=== PATIENT | male | born 1950 ===

== ENCOUNTER 2017-04-04 21:16 | Emergency (ER) | payer SELFPAY ==
[2017-04-04 22:03] VITALS: BP 134/81; PULSE 89; RESP 18; O2SAT 98
--- NOTE | 2017-04-04 23:25 | ED PDOC ---
Upper Extremity Pain/Injury Time Seen by Provider: 04/04/17 22:05 Chief Complaint (Nursing): Finger,Hand,&Wrist Chief Complaint (Provider): Left middle finger pain, injury History Per: Patient History/Exam Limitations: no limitations Onset/Duration Of Symptoms: Hrs (12) Current Symptoms Are (Timing): Still Present Quality: Sharp, Tightness, Pressure Severity: Severe Pain Scale Rating Of: 8 Additional Complaint(s): Pt states at 11 am he shot his finger with an air nail gun. Pt states he removed the nail from his finger but it became swollen and painful. Past Medical History Reviewed: Historical Data, Nursing Documentation, Vital Signs Vital Signs: Last Vital Signs Temp Pulse 89 04/04/17 22:00 Resp 18 04/04/17 22:00 BP 134/81 04/04/17 22:00 Pulse Ox 98 04/04/17 22:00 - Medical History PMH: HTN (No medication for 3 months ) - Surgical History Surgical History: No Surg Hx - Family History Family History: States: Unknown Family Hx - Living Arrangements Living Arrangements: With Family - Social History Current smoker - smoking cessation education provided: No Alcohol: Occasional Drugs: Denies - Home Medications Home Medications: Ambulatory Orders Medication Instructions Recorded Cephalexin [Keflex] 500 mg PO Q6 #28 cap 11/14/15 Amoxicillin/Clavulanate [Augmentin 1 tab PO Q12 #9 tab 01/21/16 875 MG-125 MG] Oxycodone HCl/Acetaminophen 1 each PO Q6 PRN #10 tablet 01/21/16 [Percocet 5-325 mg Tablet] - Allergies Allergies/Adverse Reactions: Allergies Allergy/AdvReac Type Severity Reaction Status Date / Time No Known Allergies Allergy Verified 01/20/16 20:56 Review of Systems ROS Statement: Except As Marked, All Systems Reviewed And Found Negative Musculoskeletal: Positive for: Other (Finger pain ) Skin: Positive for: Other Physical Exam - Reviewed Nursing Documentation Reviewed: Yes Vital Signs Reviewed: Yes - Physical Exam Appears: Positive for: Well, Non-toxic, No Acute Distress Head Exam: Positive for: ATRAUMATIC, NORMAL INSPECTION, NORMOCEPHALIC Skin: Positive for: Warm. Negative for: Normal Color ((+) edema of the left middle finger ) Eye Exam: Positive for: Normal appearance ENT: Positive for: Normal ENT Inspection Neck: Positive for: Normal, Painless ROM Cardiovascular/Chest: Positive for: Regular Rate, Rhythm Respiratory: Positive for: Normal Breath Sounds. Negative for: Accessory Muscle Use, Respiratory Distress Back: Positive for: Normal Inspection Extremity: Positive for: Tenderness (Flexor surface of the left middle finger ) , Capillary Refill, Swelling (Left middle finger ). Negative for: Normal ROM ( Finger held in flexed position, pain with extension of left midddle finger ), Deformity Neurologic/Psych: Positive for: Alert, Oriented - ECG O2 Sat by Pulse Oximetry: 98 Medical Decision Making Medical Decision Making: Discussed with Dr. Vines. X-rays normal, concern for flexor tenosynovitis. Instructed to make puncture would slightly large for decompression and admit patient. Pt states he does not want to stay over night because he has something he needs to do in the morning. PT demonstrated understanding of diagnosis and possible infection of finger. Patient agrees to stay for one dose of antibiotics and states he does not want procedure at this time. Discussed AMA. Pt states he will return tomorrow.
[2017-04-04] MEDS ORDERED: ceFAZolin 1 GM in Sodium Chloride 0.9% 100 ML IVPB ONE (23:43)
--- NOTE | 2017-04-05 09:15 | RAD ---
PROCEDURE: Left Hand Radiographs. HISTORY: puncture wound with nail, left 4th although the history states 4th and marrow and soft tissue changes are placed over the 3rd digit. COMPARISON: None. FINDINGS: BONES: No fracture. First carpal metacarpal mild osseous hypertrophy/ osteoarthritic changes. JOINTS: Proximal and distal osteoarthrosis -distal osteoarthrosis most pronounced. SOFT TISSUES: Volar soft tissue swelling 3rd digit proximal phalangeal level. This is assumed the area that was injured despite the history provided. No radiopaque foreign body is noted no cortical interruption here seen OTHER FINDINGS: None. IMPRESSION: Soft tissue swelling 3rd digit. No cortical interruption. No fracture. No radiopaque foreign body. Osteoarthrosis proximal and distal interphalangeal joints - distal interphalangeal joints most notably affected
== END 2017-04-05 00:45 | disposition home or self-care (01) ==
LOC: H.ER 21:16
DX: S69.92XA Unspecified injury of left wrist, hand and finger(s), initial encounter (principal); W29.4XXA Contact with nail gun, initial encounter; Y99.0 Civilian activity done for income or pay
CPT/HCPCS: 73130; 99284; J0690

== ENCOUNTER 2017-04-06 13:47 | Inpatient (IN) | payer OTHER ==
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
[2017-04-06] MEDS ORDERED: Piperacillin/Tazobact 3.375 GM in Sodium Chloride 0.9% 100 ML IVPB STA (14:25)
[2017-04-06 15:01] LABS: BASO % 0.4 % (0.0-2.0); EOS # 0.1 K/uL (0.0-0.7); EOS % 1.3 % (0.0-4.0); HEMATOCRIT 46.4 % (35.0-51.0); LYMPH # 1.4 K/uL (1.0-4.3); LYMPH % 21.2 % (20.0-40.0); MEAN CELL VOLUME 91.4 fl (80.0-94.0); MEAN CORPUSCULAR HGB CONC 33.9 g/dL (33.0-37.0); MEAN PLATELET VOLUME 7.8 fl (7.2-11.7); MONO # 0.6 K/uL (0.0-0.8); MONO % 8.9 % (0.0-10.0); NEUT # 4.5 K/uL (1.8-7.0); NEUT % 68.2 % (50.0-75.0); NRBC % 0.1 % (0.0-0.0); RED CELL DISTRIBUTION WIDTH 14.8 % (11.5-14.5); WHITE BLOOD COUNT 6.5 K/uL (4.8-10.8)
[2017-04-06 15:05] LABS: ALB/GLOB RATIO 1.4 (1.0-2.1); ALKALINE PHOSPHATASE 77 U/L (38-126); ALT/SGPT 26 U/L (21-72); AST/SGOT 24 U/L (17-59); BILIRUBIN,TOTAL 0.5 mg/dl (0.2-1.3); BLOOD UREA NITROGEN 27 mg/dl (9-20); CALCIUM 9.6 mg/dL (8.4-10.2); CARBON DIOXIDE 25 mmol/L (22-30); CHLORIDE 105 mmol/L (98-107); GFR AFRICAN-AMERICAN > 60; GLUCOSE,RANDOM 115 mg/dL (75-110); POTASSIUM 4.4 MMOL/L (3.6-5.0); SODIUM 140 mmol/l (132-148); TOTAL PROTEIN 7.5 G/DL (6.3-8.2)
--- NOTE | 2017-04-06 16:08 | RAD ---
PROCEDURE: Left Hand Radiographs. HISTORY: trauma to L 3rd digit COMPARISON: None available. FINDINGS: BONES: No acute displaced fracture. JOINTS: No dislocation. SOFT TISSUES: Soft tissue swelling. No evidence of radiopaque foreign body. OTHER FINDINGS: None. IMPRESSION: Soft tissue swelling. No acute displaced fracture, dislocation, or significant joint effusion identified. If symptoms persist, or if there is continued clinical concern, x-ray follow-up in 7-10 days should be considered.
[2017-04-06] MEDS ORDERED: Saccharomyces Boulardi 250 mg Cap PO SCH (19:00)
[2017-04-06 19:54] LABS: RBC URINE 2 /hpf (0-3); URINE BILIRUBIN NEGATIVE (NEGATIVE); URINE BLOOD NEGATIVE (NEGATIVE); URINE COLOR YELLOW (YELLOW); URINE GLUCOSE (UA) NEG (Normal); URINE KETONE TRACE mg/dL (NEGATIVE); URINE LEUKOCYTE ESTERASE NEG Leu/uL (Negative); URINE PROTEIN NEGATIVE (NEGATIVE); URINE UROBILINOGEN 0.2-1.0 mg/dL (0.2-1.0); WBC URINE < 1 /hpf (0-5)
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
[2017-04-07 00:15] VITALS: RESP 18
[2017-04-07] MEDS: Piperacillin/Tazobact 3.375 GM in Sodium Chloride 0.9% 100 ML IVPB SCH ×3 (00:16→12:30)
[2017-04-07 06:41] LABS: BASO % 0.4 % (0.0-2.0); EOS # 0.1 K/uL (0.0-0.7); EOS % 2.7 % (0.0-4.0); HEMATOCRIT 43.5 % (35.0-51.0); LYMPH # 1.5 K/uL (1.0-4.3); LYMPH % 31.6 % (20.0-40.0); MEAN CELL VOLUME 91.6 fl (80.0-94.0); MEAN CORPUSCULAR HEMOGLOBIN 30.5 pg (27.0-31.0); MEAN CORPUSCULAR HGB CONC 33.3 g/dL (33.0-37.0); MEAN PLATELET VOLUME 7.4 fl (7.2-11.7); MONO # 0.5 K/uL (0.0-0.8); MONO % 10.2 % (0.0-10.0); NEUT # 2.6 K/uL (1.8-7.0); NEUT % 55.1 % (50.0-75.0); NRBC % 0.1 % (0.0-0.0); RED CELL DISTRIBUTION WIDTH 14.6 % (11.5-14.5); WHITE BLOOD COUNT 4.7 K/uL (4.8-10.8)
[2017-04-07 06:53] LABS: BLOOD UREA NITROGEN 23 mg/dl (9-20); CALCIUM 8.5 mg/dL (8.4-10.2); CARBON DIOXIDE 24 mmol/L (22-30); CHLORIDE 107 mmol/L (98-107); GFR AFRICAN-AMERICAN > 60; GLUCOSE,RANDOM 95 mg/dL (75-110); POTASSIUM 4.1 MMOL/L (3.6-5.0); SODIUM 139 mmol/l (132-148)
[2017-04-07 06:59] LABS: PARTIAL THROMBOPLASTIN TIME 32.2 Seconds (25.6-37.1)
[2017-04-07 09:41] VITALS: BP 158/92; PULSE 59; TEMP 97.3; O2SAT 98
--- NOTE | 2017-04-07 11:33 | CON ---
DATE: 04/07/2017 REASON FOR CONSULTATION: Left third digit pain and swelling. HISTORY OF PRESENT ILLNESS: A 66-year-old male who injured his finger with a nail. The patient stat es a small nail was punctured in his left third digit about 7 or 8 days ago. He removed the nail and was doing fine; however, over the next couple of days he noticed some swelling and pain at the digit . The patient came to the Emergency Room about 2-3 days ago for increased pain. He was recommended for admission and IV antibiotics; however, the patient signed out AMA. He presents again back yester day with continued pain of his finger. I was consulted for further evaluation and treatment. The nacho marquis was admitted for IV antibiotics. PHYSICAL EXAMINATION: Left third digit there is a small puncture wound. No exit wound. The finger is mildly swollen. The patient has no tenderness over the flexor tendon sheath. No pain with passiv e stretch of the digit. No active drainage. Sensation is intact to light touch throughout the finge r, good capillary refill, compartments are soft. Of note, the patient had I and D of the puncture wo und yesterday in the ER with no active pus seen. States his pain is doing slightly better with IV an tibiotics. There is mild erythema over the dorsum of the finger. No streaking. The hand is warm an d well perfused. No tenderness over the palmar or dorsum of the hand. The patient can actively flex and extend the MP, PIP, and DIP joint. There is stiffness with making a fist due to swelling. X-rays of the hand were seen and reviewed, shows no foreign objects, well aligned bones, no fracture or dislocation. ASSESSMENT: Left third digit puncture wound now with cellulitis. PLAN: Discussed the above findings with the patient and recommended continuing IV antibiotics, warm compresses, and anti-inflammatory medication. Low suspicion for flexor tenosynovitis at this point. We will continue to observe. Jonathan Vines M.D. cc: [id number] TT: 04/07/2017 11:32:43 Confirmation # [id number] Dictation # [id number] vita
--- NOTE | 2017-04-07 11:53 | RAD ---
HISTORY: clearance COMPARISON: None available. TECHNIQUE: Chest, one view. FINDINGS: LUNGS: No focal consolidation. Please note that chest x-ray has limited sensitivity for the detection of pulmonary masses. PLEURA: No significant pleural effusion identified. No definite pneumothorax . CARDIOVASCULAR: Heart size appears within normal limits. Ectatic aorta. OSSEOUS STRUCTURES: No acute osseous abnormality identified. VISUALIZED UPPER ABDOMEN: Unremarkable. OTHER FINDINGS: None. IMPRESSION: No focal consolidation, significant pleural effusion, or definite pneumothorax identified.
--- NOTE | 2017-04-07 13:26 | CP.PCM.DIS ---
Provider - Provider Date of Admission: 04/06/17 18:11 Attending physician: Casper Fox MD Primary care physician: None Consults: Hand surgery consult Time Spent in preparation of Discharge (in minutes): 20 Hospital Course - Lab Results Lab Results: Most Recent Lab Values WBC 4.7 K/uL (4.8-10.8) L 04/07/17 06:15 RBC 4.75 Mil/uL (4.40-5.90) 04/07/17 06:15 Hgb 14.5 g/dL (12.0-18.0) 04/07/17 06:15 Hct 43.5 % (35.0-51.0) 04/07/17 06:15 MCV 91.6 fl (80.0-94.0) 04/07/17 06:15 MCH 30.5 pg (27.0-31.0) 04/07/17 06:15 MCHC 33.3 g/dL (33.0-37.0) 04/07/17 06:15 RDW 14.6 % (11.5-14.5) H 04/07/17 06:15 Plt Count 176 K/uL (130-400) 04/07/17 06:15 MPV 7.4 fl (7.2-11.7) 04/07/17 06:15 Neut % (Auto) 55.1 % (50.0-75.0) 04/07/17 06:15 Lymph % (Auto) 31.6 % (20.0-40.0) 04/07/17 06:15 [place] % (Auto) 10.2 % (0.0-10.0) H 04/07/17 06:15 Eos % (Auto) 2.7 % (0.0-4.0) 04/07/17 06:15 Baso % (Auto) 0.4 % (0.0-2.0) 04/07/17 06:15 Neut # 2.6 K/uL (1.8-7.0) 04/07/17 06:15 Lymph # 1.5 K/uL (1.0-4.3) 04/07/17 06:15 [place] # 0.5 K/uL (0.0-0.8) 04/07/17 06:15 Eos # 0.1 K/uL (0.0-0.7) 04/07/17 06:15 Baso # 0.0 K/uL (0.0-0.2) 04/07/17 06:15 PT 11.9 Seconds (9.8-13.1) 04/07/17 06:15 INR 1.1 (0.9-1.2) 04/07/17 06:15 APTT 32.2 Seconds (25.6-37.1) 04/07/17 06:15 Sodium 139 mmol/l (132-148) 04/07/17 06:15 Potassium 4.1 MMOL/L (3.6-5.0) 04/07/17 06:15 Chloride 107 mmol/L (98-107) 04/07/17 06:15 Carbon Dioxide 24 mmol/L (22-30) 04/07/17 06:15 Anion Gap 12 (10-20) 04/07/17 06:15 BUN 23 mg/dl (9-20) H 04/07/17 06:15 Creatinine 1.0 mg/dL (0.8-1.5) 04/07/17 06:15 Est GFR ( Amer) > 60 04/07/17 06:15 Est GFR (Non-Af Amer) > 60 04/07/17 06:15 Random Glucose 95 mg/dL (75-110) 04/07/17 06:15 Calcium 8.5 mg/dL (8.4-10.2) 04/07/17 06:15 Total Bilirubin 0.5 mg/dl (0.2-1.3) 04/06/17 14:35 AST 24 U/L (17-59) 04/06/17 14:35 ALT 26 U/L (21-72) 04/06/17 14:35 Alkaline Phosphatase 77 U/L (38-126) 04/06/17 14:35 Total Protein 7.5 G/DL (6.3-8.2) 04/06/17 14:35 Albumin 4.3 g/dL (3.5-5.0) 04/06/17 14:35 Globulin 3.2 gm/dL (2.2-3.9) 04/06/17 14:35 Albumin/Globulin Ratio 1.4 (1.0-2.1) 04/06/17 14:35 Urine Color Yellow (YELLOW) 04/06/17 19:09 Urine Clarity Clear (Clear) 04/06/17 19:09 Urine pH 6.0 (5.0-8.0) 04/06/17 19:09 Ur Specific [place] 1.026 (1.003-1.030) 04/06/17 19:09 Urine Protein Negative mg/dL (NEGATIVE) 04/06/17 19:09 Urine Glucose (UA) Neg mg/dL (Normal) 04/06/17 19:09 Urine Ketones Trace mg/dL (NEGATIVE) 04/06/17 19:09 Urine Blood Negative (NEGATIVE) 04/06/17 19:09 Urine Nitrate Negative (NEGATIVE) 04/06/17 19:09 Urine Bilirubin Negative (NEGATIVE) 04/06/17 19:09 Urine Urobilinogen 0.2-1.0 mg/dL (0.2-1.0) 04/06/17 19:09 Ur Leukocyte Esterase Neg [place]/uL (Negative) 04/06/17 19:09 Urine RBC (Auto) 2 /hpf (0-3) 04/06/17 19:09 Urine Microscopic WBC < 1 /hpf (0-5) 04/06/17 19:09 Ur Squamous Epith Cells < 1 /hpf (0-5) 04/06/17 19:09 - Hospital Course Hospital Course: 66 year old Mozambican speaking male presented to [facility] ER with a 2 day history of Left Hand Finger #3 pain after it was pierced by a nail from a nail gun while at work. He pulled the nail out himself and presented to the [facility] ER on 04/04/17 at which time he was administered fluids and antibiotic. It was advised by the treating physician that he stay for admission as there was purulent material draining from the puncture site, however patient signed out AMA. He came back to the ER 04/06 as the pain was still present along with redness and edema and he found that he could no longer flex the affected finger all the way to the palm surface of his hand. Patient was admitted with diagnosis of hand cellulitis and started on IV Vancomycin and Zosyn. He had I& d in ER with no pus from wound Hand surgeon consulted for evaluation to rule out tenosynnovitis . As per hand surgeon possibility of tenoosynovitis is unlikley . Patient is hemodynamically stable, afebrile with normal WBC count. left hand third finger appears slightly swollen with small puncutre wound distal part , no tenderness over flexor tendon sheath , with intact sensation and good capuillary refill.He can actively flex and extend MP,PIP and DIP joints but unable to make a fist due to swelling Imaging showed no foreign body, fracture or dislocation Less likely tenossynovitis at this point. Most likely diagnosis finger cellulitis Will discharge patient home on Po Keflex for 7 more days Continue hand warm water compresses , Tylenol or Motrin PRN for pain Return to hospital if worsening of symptoms occur Discharge Exam - Head Exam Head Exam: ATRAUMATIC, NORMOCEPHALIC - Eye Exam Eye Exam: EOMI, Normal appearance, PERRL Pupil Exam: NORMAL ACCOMODATION - ENT Exam ENT Exam: Mucous Membranes Moist, Normal Exam - Neck Exam Neck exam: Full Rom, Normal Inspection - Respiratory Exam Respiratory Exam: Clear to PA & Lateral, NORMAL BREATHING PATTERN. absent: Rales, Rhonchi, Wheezes, Respiratory Distress - Cardiovascular Exam Cardiovascular Exam: REGULAR RHYTHM, RRR, +S1, +S2. absent: JVD - GI/Abdominal Exam GI & Abdominal Exam: Normal Bowel Sounds, Soft. absent: Distended, Guarding, Rebound, Tenderness - Rectal Exam Rectal Exam: Deferred - Extremities Exam Extremities exam: normal capillary refill, normal inspection, pedal pulses present Additional comments: left hand third finger swelling with no tenderness, small puncture wound to distal palmar aspect, no fluctuation, pulses , sensation intact capillay refill intact, color normal - Back Exam Back exam: NORMAL INSPECTION - Neurological Exam Neurological exam: Alert, CN II-XII Intact, Oriented x3, Reflexes Normal - Psychiatric Exam Psychiatric exam: Normal Affect, Normal Mood - Skin Skin Exam: Dry, Intact, Normal Color, Warm Discharge Plan - Follow Up Plan Condition: STABLE Disposition: HOME/ ROUTINE Patient education suggested?: Yes Instructions: Cellulitis (DC) Additional Instructions: Warm compresses to left hand 4 times a day Referrals: [facility] [place] [Outside]
--- NOTE | 2017-04-07 18:14 | CARD ---
APPROVED REPORT EKG Measurement Heart [id number] <Conclusion> Normal sinus rhythm Normal ECG
== END 2017-04-07 15:12 | disposition home or self-care (01) | DRG 278 ==
LOC: H.ER 13:47 → H.ERHOLD 18:11 → H.ER 18:13 → H.MEDSURG1 20:30
PROVIDERS: ADMIT Family Medicine; ATTEND Family Medicine
PROC: 0H9GXZZ Drainage of Left Hand Skin, External Approach (ICD-10-PCS; principal; 2017-04-06)
DX: L03.012 Cellulitis of left finger (principal)

== ENCOUNTER 2018-03-05 20:15 | Emergency (ER) | payer SELFPAY ==
[2018-03-05 20:20] VITALS: BP 133/84; PULSE 77; RESP 18; TEMP 98.2; O2SAT 100
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
--- NOTE | 2018-03-05 22:44 | CT ---
EXAM: CT Orbits Without Intravenous Contrast CLINICAL HISTORY: 67 years old, male; Pain; Eye pain; Left; Additional info: R/O foreign body in left eye. Sent phy. Doc. TECHNIQUE: Axial computed tomography images of the orbits without intravenous contrast. All CT scans at this facility use one or more dose reduction techniques, viz.: automated exposure control; ma/kV adjustment per patient size (including targeted exams where dose is matched to indication; i.e. head); or iterative reconstruction technique. Coronal and sagittal reformatted images were created and reviewed. COMPARISON: No relevant prior studies available. FINDINGS: Orbits: No radiopaque foreign bodies. Sinuses: No acute sinusitis. Mastoid air cells: No mastoid effusion. Bones/joints: No acute fracture. Incomplete closure of C1 ring, normal variant. Chronic deformities medial wall, floor of RIGHT orbit. Nasal bone deformities, chronic. Degenerative changes of cervical spine. Soft tissues: Unremarkable. Brain: Moderate atrophy. Minimal decreased attenuation within periventricular white matter. Dental: Few periapical lucencies compatible with dental disease. Dental hardware. IMPRESSION: 1. No radiopaque foreign bodies within left orbit. 2. Incidental/non-acute findings are described above.
== END 2018-03-05 23:07 | disposition home or self-care (01) ==
LOC: H.ER 20:15
DX: T15.01XA Foreign body in cornea, right eye, initial encounter (principal); I10 Essential (primary) hypertension

== ENCOUNTER 2018-10-10 23:33 | Emergency (ER) | payer SELFPAY ==
[2018-10-10 23:37] VITALS: RESP 18
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
[2018-10-11 06:58] VITALS: BP 122/84; PULSE 84; TEMP 98.4; O2SAT 99
== END 2018-10-11 05:10 | disposition home or self-care (01) ==
LOC: H.ER 23:33
DX: F10.120 Alcohol abuse with intoxication, uncomplicated (principal); Y90.7 Blood alcohol level of 200-239 mg/100 ml; I10 Essential (primary) hypertension
CPT/HCPCS: 82948; 96372; 99283; G0480; J2060